=== PATIENT | female | born 1960 ===

== ENCOUNTER 2017-03-27 09:38 | Emergency (ER) | payer BC, OTHER ==
[2017-03-27 09:47] VITALS: RESP 18; TEMP 98.6; O2SAT 99
[2017-03-27] MEDS ORDERED: Iohexol 240 (50 ml) PO ONE (10:22)
[2017-03-27] MEDS ORDERED: Sodium Chloride 0.9% 1,000 ML IV STA (10:29)
--- NOTE | 2017-03-27 10:37 | ED PDOC ---
HPI: Abdomen Time Seen by Provider: 03/27/17 09:54 Chief Complaint (Nursing): Abdominal Pain Chief Complaint (Provider): abdominal pain History Per: Patient History/Exam Limitations: no limitations Onset/Duration Of Symptoms: Days (x6 months) Current Symptoms Are (Timing): Still Present Severity: Mild Location Of Pain/Discomfort: Epigastric, LUQ Associated Symptoms: Nausea. denies: Vomiting, Diarrhea Additional Complaint(s): Patient is a 56 year old female presenting to the ED complaining of abdominal pain x6 months. Patient reports epigastric and left upper quadrant pain that radiates to the left flank. Pain is worse since last night and associated with nausea. Patient was seen at [facility] x3 days ago and diagnosed with pancreatits. Patient was previously diagonsed with gastritis. Denies vomiting or diarrhea. PMD; Dr. Brynes Past Medical History Reviewed: Historical Data, Nursing Documentation, Vital Signs Vital Signs: Last Vital Signs Temp 98.6 F 03/27/17 09:46 Pulse 60 03/27/17 15:41 Resp 18 03/27/17 09:46 BP 137/84 03/27/17 09:46 Pulse Ox 99 03/27/17 15:41 - Medical History PMH: Gastritis - Surgical History Other surgeries: unknown uterine and throat surgery - Family History Family History: States: No Known Family Hx - Immunization History Hx Tetanus Toxoid Vaccination: No Hx Influenza Vaccination: No Hx Pneumococcal Vaccination: No - Home Medications Home Medications: Ambulatory Orders Medication Instructions Recorded Docusate Sodium [Colace] 100 mg PO BID #20 capsule 03/27/17 oxyCODONE/Acetaminophen [Percocet 1 ea PO Q6 PRN #12 tab 03/27/17 5/325 mg Tab] - Allergies Allergies/Adverse Reactions: Allergies Allergy/AdvReac Type Severity Reaction Status Date / Time sulfamethoxazole Allergy RASH Verified 03/27/17 10:09 [From Bactrim] trimethoprim [From Bactrim] Allergy RASH Verified 03/27/17 10:09 Review of Systems ROS Statement: Except As Marked, All Systems Reviewed And Found Negative Constitutional: Negative for: Fever Gastrointestinal: Positive for: Nausea, Abdominal Pain. Negative for: Vomiting , Diarrhea Physical Exam - Reviewed Nursing Documentation Reviewed: Yes Vital Signs Reviewed: Yes - Physical Exam Appears: Positive for: Non-toxic, No Acute Distress, Uncomfortable Head Exam: Positive for: ATRAUMATIC, NORMAL INSPECTION, NORMOCEPHALIC Skin: Positive for: Normal Color, Warm, DRY Eye Exam: Positive for: EOMI, Normal appearance, PERRL Neck: Positive for: Normal, Painless ROM Cardiovascular/Chest: Positive for: Regular Rate, Rhythm. Negative for: Gallop , Murmur Respiratory: Positive for: Normal Breath Sounds. Negative for: Accessory Muscle Use, Rhonchi, Respiratory Distress Gastrointestinal/Abdominal: Positive for: Soft, Tenderness (mild LUQ and epigastric tend) Extremity: Positive for: Normal ROM Neurologic/Psych: Positive for: Alert, Oriented - Laboratory Results Result Diagrams: 03/27/17 10:50 03/27/17 10:50 - ECG ECG: Positive for: Interpreted By Me, Viewed By Me ECG Rhythm: Positive for: Normal QRS, Normal ST Segment, Sinus Rhythm. Negative for: ST/T Changes Rate: 60 O2 Sat by Pulse Oximetry: 99 (Ra) Pulse Ox Interpretation: Normal Medical Decision Making Medical Decision Making: time: 9:55 impression: Pancreatitis v Pancreatic CA v Gastritis other pathologies considered but not r/o plan: CT A/P EKG CMP LIPASE CBC Morphine 4 mg IV IVF Zofran 4 mg IV Scribe Attestation Documented by Nina Smith acting as a scribe for Kermit Lam MD Provider Attestation: All medical record entries made by the Scribe were at my direction and personally dictated by me. I have reviewed the chart and agree that the record accurately reflects my personal performance of the history, physical exam, medical decision making, and the department course for this patient. I have also personally directed, reviewed, and agree with the discharge instructions and disposition. Disposition - Clinical Impression Clinical Impression: Abdominal pain - Patient ED Disposition Is Patient to be Admitted: No Doctor Will See Patient In The: Office Counseled Patient/Family Regarding: Studies Performed, Diagnosis, Need For Followup - Disposition Referrals: Crow Duran MD, PhD [Staff Provider] - Disposition: Routine/Home Disposition Time: 15:39 Condition: GOOD Additional Instructions: Follow up with your PCP in 2-3 days. Prescriptions: Docusate Sodium [Colace] 100 mg PO BID #20 capsule oxyCODONE/Acetaminophen [Percocet 5/325 mg Tab] 1 ea PO Q6 PRN #12 tab PRN Reason: Pain, Severe (8-10) Instructions: Abdominal Pain (ED) Print Language: SWEDISH
[2017-03-27] MEDS ORDERED: Iohexol 240 (50 ml) ONE (10:56)
[2017-03-27 11:05] LABS: BASO % 0.6 % (0.0-2.0); EOS # 0.1 K/uL (0.0-0.7); EOS % 2.3 % (0.0-4.0); HEMATOCRIT 40.6 % (34.0-47.0); LYMPH # 1.9 K/uL (1.0-4.3); LYMPH % 32.5 % (20.0-40.0); MEAN CELL VOLUME 89.1 fl (81.0-99.0); MEAN CORPUSCULAR HEMOGLOBIN 29.3 pg (27.0-31.0); MEAN CORPUSCULAR HGB CONC 32.9 g/dL (33.0-37.0); MEAN PLATELET VOLUME 10.4 fl (7.2-11.7); MONO # 0.6 K/uL (0.0-0.8); MONO % 10.2 % (0.0-10.0); NEUT # 3.3 K/uL (1.8-7.0); NEUT % 54.4 % (50.0-75.0); NRBC % 0.1 % (0.0-0.0); RED CELL DISTRIBUTION WIDTH 13.6 % (11.5-14.5)
[2017-03-27 11:37] LABS: ALB/GLOB RATIO 1.3 (1.0-2.1); ALKALINE PHOSPHATASE 114 U/L (38-126); ALT/SGPT 31 U/L (9-52); AST/SGOT 35 U/L (14-36); BILIRUBIN,TOTAL 0.6 mg/dl (0.2-1.3); BLOOD UREA NITROGEN 13 mg/dl (7-17); CALCIUM 9.9 mg/dL (8.4-10.2); CARBON DIOXIDE 26 mmol/L (22-30); CHLORIDE 104 mmol/L (98-107); GFR AFRICAN-AMERICAN > 60; GLUCOSE,RANDOM 96 mg/dL (65-105); LIPASE 214 U/L (23-300); POTASSIUM 4.4 MMOL/L (3.6-5.0); SODIUM 144 mmol/l (132-148); TOTAL PROTEIN 8.4 G/DL (6.3-8.2)
[2017-03-27] MEDS ORDERED: Iohexol 300 100 ML IJ ONE (13:41)
[2017-03-27] MEDS ORDERED: Sodium Chloride 0.9% 50 ML IV ONE (13:41)
--- NOTE | 2017-03-27 14:31 | CT ---
PROCEDURE: CT Abdomen and Pelvis with contrast HISTORY: epigastric and LUQ for 6 months COMPARISON: None. TECHNIQUE: Contrast dose: 95 mL Radiation dose: Total exam DLP = 719.86 mGy-cm. This CT exam was performed using one or more of the following dose reduction techniques: Automated exposure control, adjustment of the mA and/or kV according to patient size, and/or use of iterative reconstruction technique. FINDINGS: LOWER THORAX: Unremarkable. LIVER: Unremarkable. No gross lesion or ductal dilatation. GALLBLADDER AND BILE DUCTS: Unremarkable. PANCREAS: Unremarkable. No gross lesion or ductal dilatation. SPLEEN: Unremarkable. ADRENALS: Unremarkable. No mass. KIDNEYS AND URETERS: Unremarkable. No hydronephrosis. No solid mass. VASCULATURE: Unremarkable. No aortic aneurysm. BOWEL: Collapsed stomach limiting evaluation. Enteric contrast has reached proximal descending colon at the time of evaluation. No bowel obstruction. APPENDIX: Normal appendix. PERITONEUM: Unremarkable. No free fluid. No free air. LYMPH NODES: Unremarkable. No enlarged lymph nodes. BLADDER: Unremarkable. REPRODUCTIVE: Please note that evaluation of gynecologic organs is not optimal on CT imaging. BONES: No acute fracture. OTHER FINDINGS: None. IMPRESSION: No CT evidence of acute bowel pathology Followup evaluation as per clinical indication.
[2017-03-27 15:49] VITALS: BP 121/78; PULSE 88
--- NOTE | 2017-03-28 07:40 | CARD ---
APPROVED REPORT EKG Measurement Heart [id number] 150P-4 [id number] <Conclusion> Normal sinus rhythm Voltage criteria for left ventricular hypertrophy Nonspecific T wave abnormality Abnormal ECG
== END 2017-03-27 15:49 | disposition home or self-care (01) ==
LOC: H.ER 09:38
DX: K29.70 Gastritis, unspecified, without bleeding (principal); K85.90 Acute pancreatitis without necrosis or infection, unspecified; C25.9 Malignant neoplasm of pancreas, unspecified; R11.0 Nausea
CPT/HCPCS: 74177; 80053; 83690; 85025; 93005; 96361; 96374; 96375; 99283; J2270; J2405; J7040; Q9966; Q9967